=== PATIENT | female | born 1980 | race Two or more races ===

== ENCOUNTER 2024-03-11 08:52 | Outpatient (RCR) | payer MEDICAID, SELFPAY ==
--- NOTE | 2024-03-11 09:08 | PT.ODS1RPT ---
PT OP Progress/Discharge Note Date of Service: 03/11/24 Progress Note/DC Note Progress Note/Discharge Note: DC Note Patient Information Visit Reasons: Pain in Right knee Service Continue Service or Discharge: Discharge Discharge Date: 03/11/24 Status Subjective: Pt came in and said her low back has been hurting and the pain runs down the L LE so she puts more weight on the R LE which causes more pain. For this reason she doesn't want to continue with therapy nor does she want to do therapy today due to LBP and R knee pain. The R knee pain is unchanged and still grinds when she moves it. Objective: No Rx today, no charges Assessment: Pt attended the evaluation at 1 Rx visit and has had painful LB episodes which has limited doing HEP or therapy sessions. Pt has poor rehab potential of the R knee to meet goals and PT recommends further diagnostic imaging of knee in light of crepitus and patella compression sensitivity. Plan: D/C with HEP
== END 2024-03-30 23:59 | disposition home or self-care (01) ==
LOC: CPTX 08:52
PROVIDERS: PCP Nurse Practitioner Family; Referring Provider Nurse Practitioner Family; Visit Provider Nurse Practitioner Family
DX: Z53.8 Procedure and treatment not carried out for other reasons (principal)